=== PATIENT | male | born 1940 | race Caucasian/White ===

== ENCOUNTER 2017-10-05 10:45 | Inpatient (IN) | payer BC, MEDICARE ==
[~2017-10-05] VITALS: Ht 162.6 cm; Wt 73.0 kg
--- NOTE | 2017-10-05 11:00 | NUR ---
[id number], [id number] FROM HOME: FOUND BY CAREGIVER ON CHAIR, ALOC. UNKNOWN LKW TIME. BS IN FIELD 277. TACHYCARDIC =130. RR IS EVEN AND UNLABORED WITH NAD NOTED. SKIN IS WARM AND DRY. PLACED ON THE MONITOR. WILL CONTINUOUSLY MONITOR THE PATIENT. DR MELGOZA AT BS FOR EVAL.
--- NOTE | 2017-10-05 11:02 | NUR ---
NEURO INTACT, FACE SYMMETRICAL, BILATERAL STRONG AND EQUAL FISH CULTURIST.
[2017-10-05 11:25] LABS: CALCIUM, SERUM 9.9 mg/dL (8.5-10.1); CARBON DIOXIDE 27 mmol/L (21-32); CHLORIDE 98 mmol/L (98-107); CREATININE 1.6 mg/dL (0.6-1.3); GLUCOSE 253 mg/dL (74-106); POTASSIUM 3.8 mmol/L (3.5-5.1); SODIUM SERUM 136 mmol/L (136-145); UREA NITROGEN, BLOOD 27 mg/dL (7-18)
[2017-10-05 11:26] LABS: BASOPHILS % (AUTO) 0.2 % (0.0-2.0); EOSINOPHILS % (AUTO) 0.5 % (0.0-6.0); HEMATOCRIT 43 % (39-51); LYMPHOCYTES # (AUTO) 1.4 /CMM (0.8-4.8); LYMPHOCYTES % (AUTO) 9.6 % (20.0-44.0); MEAN CORPUSCULAR HGB CONC 35 g/dl (31.0-36.0); MEAN CORPUSCULAR VOLUME 90 fL (80-96); MONOCYTES # (AUTO) 0.8 /CMM (0.1-1.30); MONOCYTES % (AUTO) 5.4 % (2.0-12.0); NEUTROPHILS # (AUTO) 12.3 /CMM (1.8-8.9); NEUTROPHILS % (AUTO) 84.3 % (43.0-81.0); PLATELET COUNT (AUTO) 162 /CMM (150-450); RDW COEFFICIENT OF VARIATION 12.8 (11.5-15.0); RED BLOOD CELL COUNT(AUTO) 4.79 MIL/uL (4.5-6.0); WHITE BLOOD COUNT (AUTO) 14.6 K/uL (4.3-11.0)
[2017-10-05] MEDS ORDERED: METF-440 PO (11:30)
[2017-10-05] MEDS ORDERED: IV NS 0.9% 1,000 ML BAG IV ONE ×2 (11:30→12:30)
[2017-10-05] MEDS ORDERED: ATOR40TA PO (11:30)
[2017-10-05] MEDS ORDERED: EZET10TA14 PO (11:30)
--- NOTE | 2017-10-05 11:30 | NUR ---
PATIENT CAME BACK FROM CT HEAD VIA RFORT SHAW. PATIENT REMAINS IN STABLE CONDITION AT THIS TIME.
[2017-10-05 11:31] LABS: ALANINE AMINOTRANSFERASE 49 U/L (12-78); ALBUMIN 3.6 g/dL (3.4-5.0); ALKALINE PHOSPHATASE 101 U/L (46-116); ASPARTATE AMINOTRANSFERASE 33 U/L (15-37); BILIRUBIN,DIRECT 0.2 mg/dL (0.0-0.2); TOTAL PROTEIN, SERUM 7.5 g/dL (6.4-8.2)
[2017-10-05 11:33] LABS: TROPONIN I 0.051 ng/mL (0.00-0.056)
[2017-10-05 12:02] LABS: APPEARANCE,URINE Clear (CLEAR); BILIRUBIN,URINE SMALL (NEGATIVE); BLOOD, URINE Trace-intact Ery/uL (NEGATIVE); COLOR,URINE Yellow (YELLOW); KETONES,URINE 80 (NEGATIVE); LEUKOCYTE ESTERASE ,URINE Negative (NEGATIVE); NITRITE, URINE Negative (NEGATIVE); PH,URINE 6.5 (5.0-8.0); PROTEIN,URINE 30 mg/dl (NEGATIVE); UGLUCOSE 250 MG/DL mg/dL (NEGATIVE); UROBILINOGEN,URINE 0.2 EU/dL (0.2)
[2017-10-05] MEDS ORDERED: CEFTRIAXONE 1GM BAG (ER ONLY) 50 ML IV ONE ×2 (12:28→12:30)
[2017-10-05] MEDS ORDERED: ASPIRIN 81 MG TAB.CHEW ONE (12:28)
[2017-10-05] MEDS ORDERED: ASPIRIN 81 MG TAB.CHEW PO ONE (12:30)
[2017-10-05 12:36] LABS: RBC,URINE 0-3 /HPF (0-2); SQUAMOUS EPITHELIAL CELL,UR Rare /HPF (None Seen); WBC,URINE 0-2 /HPF (0-3)
[2017-10-05 12:37] LABS: BACTERIA,URINE Few /HPF (None Seen)
--- NOTE | 2017-10-05 12:46 | NUR ---
CALLED NURSE SUP FOR JACKIE BED
[2017-10-05] MEDS ORDERED: LABETALOL 20 MG/4 ML VIAL IV ONE (13:30)
[2017-10-05] MEDS ORDERED: LABETALOL HCL IV 100MG VIAL ONE (13:30)
--- NOTE | 2017-10-05 14:03 | NUR ---
Report given to JERRY Gardner for [facility] JACKIE 102
--- NOTE | 2017-10-05 15:30 | NUR ---
JACKIE RN INITIAL NOTE PATIENT BROUGHT IN TO THE UNIT FOR ALTERED MENTAL STATUS PATIENT IS AT BEDSIDE PATIENT IS ABLE TO MAKE NEEDS KNOWN RN CONTACTED CHIKA SHEPHERD FOR ORDERS. PATIENT VITALS ARE STABLE AT THIS POINT , PATIENT REQUEST TO REST FULL BODY ASSESSMENT COMPLETED PATIENT APPEARS RESTLESS ON INITIAL ASSESSMENT. PATIENT SATURATING WELL ON ROOM AIR NO SOB NOTED AT THIS TIME, RN WILL CONTINUE TO FOLLOW THE PATIENT THROUGHOUT THE DAY
--- NOTE | 2017-10-05 15:55 | NUR ---
RN NOTE RN CONTACTED LIBRARIAN ASSISTANT ADE IN REGARDS TO PATIENT REQUESTING FURTHER INFORMATION ON TRANSFERING THE PATIENT TO [facility] FOR CONTINUATION OF CARE THROUGH THE PATIENT PRIMARY MD GOGO FERREIRA [phone]. PATIENT NAME IS JOSE JUAN [place] / . RN WILL CONTINUE TO FOLLOW UP
[2017-10-05 16:00] VITALS: BP 95/48
[2017-10-05 17:02] VITALS: BP 95/48
[2017-10-05] MEDS ORDERED: LORA-259 PO (17:09)
[2017-10-05] MEDS ORDERED: SALM50DI IH (17:09)
[2017-10-05] MEDS ORDERED: BUSP10TA35 PO (17:09)
[2017-10-05] MEDS ORDERED: PRED20TA PO (17:09)
[2017-10-05] MEDS ORDERED: ALBU18HF2 INH (17:09)
[2017-10-05] MEDS ORDERED: LISI10TA5 PO (17:09)
[2017-10-05] MEDS ORDERED: METO-357 PO (17:09)
[2017-10-05] MEDS ORDERED: HYDR-3204 PO (17:09)
[2017-10-05] MEDS ORDERED: IV NS 0.9% 1,000 ML BAG IV PRN (18:00)
[2017-10-05] MEDS ORDERED: IV NS 0.9% 1,000 ML IV PRN (18:00)
[2017-10-05] MEDS ORDERED: DEXTROSE 50%-WATER 50 ML DISP.SYRIN IV PRN (18:30)
[2017-10-05] MEDS ORDERED: LORAZEPAM 1 MG TABLET PO PRN (18:30)
[2017-10-05] MEDS ORDERED: ALBUTEROL FS 2.5 MG/0.5 ML VIAL.NEB NEB PRN (19:00)
[2017-10-05] MEDS ORDERED: IPRATROPIUM NEB FS 0.5 MG/2.5 ML AMPUL.NEB NEB PRN (19:00)
--- NOTE | 2017-10-05 19:33 | NUR ---
RN NOTE PATIENT IN BED CALM WITH VITALS STABLE PATIENT ABLE TO MAKE NEEDS KNOWN, NO SOB NOTED AT THIS TIME , PATIENT ON ROOM AIR. PATIENT. PATIENT CARE ENDORSE TO PM RN.
[2017-10-05 20:00] VITALS: BP_SYST 146; BP_DIAS 75; BP_DIAS 76
[2017-10-05] MEDS: HYDROCODONE/APAP 5/325MG 1 EACH TABLET PO PRN ×2 (20:10→22:18)
--- NOTE | 2017-10-05 20:30 | NUR ---
JACKIE RN NOTES PT IS IN BED. A/O X2 WITH NOTED CONFUSION AND AGITATION. C/O LEFT HIP PAIN 01/05. SPOKE WITH JOAO GARMENT SUPERVISOR WITH NEW ORDER FOR NORKO 5/325MG PO PRN Q4 AND ADMIN. IV RIGHT AC AND LEFT HAND CLEAN AND FLUSHING WELL. BED ALARM ENABLED, CALL LIGHT IN REACH. WILL MONITOR.
[2017-10-05] MEDS ORDERED: TEMAZEPAM 7.5 MG CAPSULE PO PRN (21:00)
[2017-10-05] MEDS ORDERED: MAGNESIUM HYDROXIDE 30 ML UDC PO PRN (21:30)
[2017-10-05] MEDS ORDERED: ACETAMINOPHEN 325 MG TABLET PO PRN ×2 (21:30)
[2017-10-05] MEDS ORDERED: ONDANSETRON HCL/PF 4 MG/2 ML VIAL IVP PRN (21:30)
[2017-10-05] MEDS ORDERED: ATORVASTATIN 40 MG TABLET PO SCH (22:00)
[2017-10-05] MEDS: BLOOD SUGAR DIAGNOSTIC 1 EACH STRIP IN SCH (23:05)
[2017-10-05] MEDS: INSULIN REGULAR, HUMAN 100 UNIT/ML 3 ML VIAL SQ PRN (23:06)
[2017-10-06] VITALS: BP_SYST 147; BP_DIAS 75; BP_DIAS 76
[2017-10-06] MEDS: HYDROCODONE/APAP 5/325MG 1 EACH TABLET PO PRN ×3 (03:17→12:56)
[2017-10-06 04:00] VITALS: BP 142/75
[2017-10-06 07:09] LABS: BASOPHILS % (AUTO) 0.6 % (0.0-2.0); EOSINOPHILS % (AUTO) 2.2 % (0.0-6.0); HEMATOCRIT 36 % (39-51); HEMOGLOBIN 12.6 g/dL (13.5-17.5); LYMPHOCYTES # (AUTO) 0.8 /CMM (0.8-4.8); LYMPHOCYTES % (AUTO) 11.3 % (20.0-44.0); MEAN CORPUSCULAR HGB CONC 35 g/dl (31.0-36.0); MEAN CORPUSCULAR VOLUME 90 fL (80-96); MONOCYTES # (AUTO) 0.6 /CMM (0.1-1.30); MONOCYTES % (AUTO) 7.4 % (2.0-12.0); NEUTROPHILS # (AUTO) 5.9 /CMM (1.8-8.9); NEUTROPHILS % (AUTO) 78.5 % (43.0-81.0); PLATELET COUNT (AUTO) 131 /CMM (150-450); RDW COEFFICIENT OF VARIATION 13.6 (11.5-15.0); RED BLOOD CELL COUNT(AUTO) 3.98 MIL/uL (4.5-6.0); WHITE BLOOD COUNT (AUTO) 7.5 K/uL (4.3-11.0)
--- NOTE | 2017-10-06 07:10 | NUR ---
RN INITIAL NOTES: REC'D PT AWAKE ON BED, NOT IN ANY DISTRESS, A/O X 2-3, DENIES PAIN/DISCOMFORT AT THIS TIME. ON ROOM AIR, NO SOB. ON TELEMONITOR, ST W/ HR 109 BPM. HAS 2 IV LINE ACCESS: R AC G20 & L HAND G20, SL, PATENT & INTACT W/ NO S/SX OF INFECTION/INFILTRATION NOTED. R AC G20, PL W/ NS X 75 CC/HR INFUSING WELL. PROVIDED COMFORT & SAFETY MEASURES. BED KEPT LOW & IN LOCKED POS. CALL LIGHT PLACED W/IN REACH. WILL CONTINUE TO MONITOR & ATTEND PT NEEDS.
[2017-10-06 07:35] LABS: CHOLESTEROL 170 mg/dL (<200); HDL CHOLESTEROL 62 mg/dL (40-60); LDL 78 mg/dL (0-99); TRIGLYCERIDES 290 mg/dL (30-150)
[2017-10-06 07:41] LABS: CALCIUM, SERUM 8.3 mg/dL (8.5-10.1); CARBON DIOXIDE 25 mmol/L (21-32); CHLORIDE 107 mmol/L (98-107); CREATININE 1.1 mg/dL (0.6-1.3); GLUCOSE 163 mg/dL (74-106); MAGNESIUM 1.3 mg/dL (1.8-2.4); PHOSPHORUS 3.9 mg/dL (2.5-4.9); POTASSIUM 3.5 mmol/L (3.5-5.1); SODIUM SERUM 141 mmol/L (136-145); UREA NITROGEN, BLOOD 16 mg/dL (7-18)
[2017-10-06] MEDS: BLOOD SUGAR DIAGNOSTIC 1 EACH STRIP IN SCH ×2 (07:50→11:46)
--- NOTE | 2017-10-06 07:51 | NUR ---
WOOL BROKER CLOSING NOTE PT REMAINED STABLE DURING SHIFT. NO ACUTE DISTRESS NOTED. ALL NEEDS ATTENDED TO PROMPTLY. ASSISTED SAFELY TO THE RESTROOM AND BACK TO BED. PAIN MANAGED WITH PAIN MEDS.BED ALARM ENABLED. CALL LIGHT WITHIN REACH. WILL ENDORSE TO NEXT SHIFT FOR CONTINUITY OF CARE.
[2017-10-06 08:00] VITALS: BP 136/90
[2017-10-06] MEDS: INSULIN REGULAR, HUMAN 100 UNIT/ML 3 ML VIAL SQ PRN ×2 (08:02→11:51)
[2017-10-06 08:14] VITALS: BP 136/90
[2017-10-06] MEDS ORDERED: predniSONE 20 MG TABLET PO SCH (09:00)
[2017-10-06] MEDS ORDERED: busPIRone 5 MG TABLET PO SCH (09:00)
[2017-10-06] MEDS ORDERED: SALMETEROL XINAFOATE 1 DISK DISK IH SCH (09:00)
[2017-10-06] MEDS ORDERED: EZETIMIBE 10 MG TABLET PO SCH (09:00)
[2017-10-06] MEDS ORDERED: FLUTICASONE/VILANTEROL 1 EACH BLST.W.DEV IH SCH (09:00)
[2017-10-06] MEDS ORDERED: METOPROLOL SUCCINATE 50 MG TAB.SR.24H PO SCH (09:00)
[2017-10-06] MEDS ORDERED: AMLODIPINE BESYLATE 5 MG TABLET PO SCH (09:00)
[2017-10-06] MEDS ORDERED: Magnesium 1GM/D5W 100ML PREMIX 100 ML IV SCH (11:00)
[2017-10-06] MEDS ORDERED: CEFTRIAXONE 1 G in IV NS 0.9% 50 ML IV SCH (12:00)
[2017-10-06] MEDS ORDERED: CEFTRIAXONE 1 G VIAL IM SCH (12:30)
--- NOTE | 2017-10-06 14:50 | NUR ---
PRODUCT SAFETY EXPERT NOTES: PT WAS SEEN & EXAMINED BY DR. WORTHY W/ DC ORDERS. PT DC'D TO HOME. DC DOCUMENTS EXPLAINED & PROVIDED TO THE PT W/ VERBALIZATION OF UNDERSTANDING. PT IS A/O X 3, DENIES ANY PAIN/DISCOMFORT AT THIS TIME. IV LINE ACCESS REMOVED, PRESSURE DRESSING APPLIED, NO SIGN OF BLEEDING NOTED. NOTIFIED THAT PT REFUSED 2 BAGS OF MAGNESIUM. ALL DC DOCUMENTS SIGNED BY PT. BELONGINGS SENT W/ PT. APPOINTMENT LETTER & RX GIVEN TO THE PT. MADE AWARE OF THE APPT DATE. PT LEFT FACILITY IN STABLE CONDITION VIA WHEELCHAIR ACCOMPANIED BY RN. NO CONCERN IDENTIFIED AT THE TIME OF DC.
[2017-11-24] MEDS ORDERED: TRIA0.252 PO (11:59)
[2017-11-24] MEDS ORDERED: ALBU8.5H8 IH (11:59)
[2017-11-24] MEDS ORDERED: AMLO5TAB7 PO (13:36)
== END 2017-10-06 14:38 | disposition home or self-care (01) | DRG 682 ==
LOC: ER 10:48 → TELE-TD 13:25 → TELE1 10-06 00:42 → MEDSG1 10-06 08:09
PROVIDERS: ADMIT Nurse Practitioner Acute Care; ATTEND Nurse Practitioner Acute Care
DX: N17.9 Acute kidney failure, unspecified (principal); I21.A1 Myocardial infarction type 2; G92 Toxic encephalopathy; I16.9 Hypertensive crisis, unspecified; N39.0 Urinary tract infection, site not specified; E86.0 Dehydration; I12.9 Hypertensive chronic kidney disease with stage 1 through stage 4 chronic kidney disease, or unspecified chronic kidney disease; N18.9 Chronic kidney disease, unspecified; E78.5 Hyperlipidemia, unspecified; J44.9 Chronic obstructive pulmonary disease, unspecified; F41.9 Anxiety disorder, unspecified; D72.829 Elevated white blood cell count, unspecified; T38.3X5A Adverse effect of insulin and oral hypoglycemic [antidiabetic] drugs, initial encounter; Y92.89 Other specified places as the place of occurrence of the external cause; G47.00 Insomnia, unspecified; E11.22 Type 2 diabetes mellitus with diabetic chronic kidney disease; M19.90 Unspecified osteoarthritis, unspecified site
CPT/HCPCS: 36415; 70450-TC; 71045-TC; 80048-TC; 80061-TC; 80076-TC; 81000-TC; 82962-TC; 83605-TC; 83735-TC; 84100-TC; 84443-TC; 84484-TC; 85025-TC; 87040-TC; 87081-TC; 87086-TC; A4216; A4606; J0696; J1815; J3475; J3490; J7030; Z7610

== ENCOUNTER 2017-10-13 13:15 | Outpatient (CLI) | payer MEDICARE ==
[~2017-10-13 13:15] MED LIST: ALBU18HF2 INH; ATOR40TA PO; BUSP10TA35 PO; EZET10TA14 PO; HYDR-3204 PO; LISI10TA5 PO; LORA-259 PO; METF-440 PO; METO-357 PO; PRED20TA PO; SALM50DI IH
[2017-10-13 14:08] VITALS: BP 127/79
[2017-11-24] MEDS ORDERED: ALBU8.5H8 IH (11:59)
[2017-11-24] MEDS ORDERED: TRIA0.252 PO (11:59)
[2017-11-24] MEDS ORDERED: AMLO5TAB7 PO (13:36)
== END 2017-10-13 23:59 | disposition home or self-care (01) ==
LOC: MSC 13:15
PROVIDERS: ATTEND Internal Medicine
DX: I10 Essential (primary) hypertension (principal); J44.9 Chronic obstructive pulmonary disease, unspecified; E78.5 Hyperlipidemia, unspecified; F41.9 Anxiety disorder, unspecified; M19.90 Unspecified osteoarthritis, unspecified site; M16.10 Unilateral primary osteoarthritis, unspecified hip; M54.9 Dorsalgia, unspecified; G89.29 Other chronic pain; F32.9 Major depressive disorder, single episode, unspecified

== ENCOUNTER 2017-10-27 12:57 | Outpatient (CLI) | payer MEDICARE ==
[2017-10-27 13:17] VITALS: BP 137/84
[2017-11-24] MEDS ORDERED: TRIA0.252 PO (11:59)
[2017-11-24] MEDS ORDERED: ALBU8.5H8 IH (11:59)
[2017-11-24] MEDS ORDERED: AMLO5TAB7 PO (13:36)
== END 2017-10-27 23:59 | disposition home or self-care (01) ==
LOC: MSC 12:57
PROVIDERS: ATTEND Internal Medicine
DX: J44.9 Chronic obstructive pulmonary disease, unspecified (principal); R05 Cough; Z79.52 Long term (current) use of systemic steroids; I10 Essential (primary) hypertension; E78.5 Hyperlipidemia, unspecified; F41.9 Anxiety disorder, unspecified; M16.10 Unilateral primary osteoarthritis, unspecified hip; G89.29 Other chronic pain; Z79.891 Long term (current) use of opiate analgesic

== ENCOUNTER 2017-11-05 12:58 | Outpatient (CLI) | payer MEDICARE ==
[2017-11-05 13:01] VITALS: BP 151/76
[2017-11-24] MEDS ORDERED: ALBU8.5H8 IH (11:59)
[2017-11-24] MEDS ORDERED: TRIA0.252 PO (11:59)
[2017-11-24] MEDS ORDERED: AMLO5TAB7 PO (13:36)
== END 2017-11-05 23:59 | disposition home or self-care (01) ==
LOC: MSC 12:58
PROVIDERS: ATTEND Internal Medicine
DX: J44.1 Chronic obstructive pulmonary disease with (acute) exacerbation (principal); I10 Essential (primary) hypertension; E78.5 Hyperlipidemia, unspecified; F41.9 Anxiety disorder, unspecified; M16.10 Unilateral primary osteoarthritis, unspecified hip; G89.29 Other chronic pain; M54.9 Dorsalgia, unspecified

== ENCOUNTER 2017-11-24 13:32 | Outpatient (CLI) | payer MEDICARE ==
[~2017-11-24 13:32] MED LIST changes: +ALBU8.5H8 IH; -METF-440 PO; +METF500T4 PO; +TRIA0.252 PO
[2017-11-24] MEDS ORDERED: AMLO5TAB2 PO (13:36)
[2017-11-24 13:37] VITALS: BP 157/76
== END 2017-11-24 23:59 | disposition home or self-care (01) ==
LOC: MSC 13:32
PROVIDERS: ATTEND Internal Medicine
DX: J44.9 Chronic obstructive pulmonary disease, unspecified (principal); Z79.52 Long term (current) use of systemic steroids; J96.11 Chronic respiratory failure with hypoxia; M16.10 Unilateral primary osteoarthritis, unspecified hip; G89.29 Other chronic pain; F41.8 Other specified anxiety disorders; E78.5 Hyperlipidemia, unspecified; Z79.899 Other long term (current) drug therapy

== ENCOUNTER 2017-12-07 10:41 | Outpatient (CLI) | payer MEDICARE ==
[~2017-12-07 10:41] MED LIST changes: -ALBU18HF2 INH; +AMLO5TAB7 PO; -LISI10TA5 PO; -LORA-259 PO; +METF-440 PO; -METF500T4 PO; -SALM50DI IH
[2017-12-07 13:08] LABS: ALANINE AMINOTRANSFERASE 51 U/L (12-78); ALBUMIN 3.2 g/dL (3.4-5.0); ALKALINE PHOSPHATASE 72 U/L (46-116); ASPARTATE AMINOTRANSFERASE 18 U/L (15-37); BILIRUBIN,TOTAL 0.6 mg/dL (0.2-1.0); CALCIUM, SERUM 8.6 mg/dL (8.5-10.1); CARBON DIOXIDE 21 mmol/L (21-32); CHLORIDE 105 mmol/L (98-107); CREATININE 1.2 mg/dL (0.6-1.3); GLUCOSE 306 mg/dL (74-106); POTASSIUM 4.7 mmol/L (3.5-5.1); SODIUM SERUM 138 mmol/L (136-145); TOTAL PROTEIN, SERUM 6.3 g/dL (6.4-8.2); UREA NITROGEN, BLOOD 24 mg/dL (7-18)
[2017-12-07 13:18] LABS: CHOLESTEROL 170 mg/dL (<200); FREE T4 (FREE THYROXINE) 0.85 ng/dL (0.76-1.46); HDL CHOLESTEROL 70 mg/dL (40-60); LDL 83 mg/dL (0-99); THYROID STIMULATING HORMONE 0.698 uIU/mL (0.358-3.74); TRIGLYCERIDES 98 mg/dL (30-150)
[2017-12-07 13:32] LABS: BASOPHILS % (AUTO) 0.2 % (0.0-2.0); HEMATOCRIT 40 % (39-51); HEMOGLOBIN 13.4 g/dL (13.5-17.5); LYMPHOCYTES # (AUTO) 0.7 /CMM (0.8-4.8); LYMPHOCYTES % (AUTO) 8.9 % (20.0-44.0); MEAN CORPUSCULAR HGB CONC 33 g/dl (31.0-36.0); MEAN CORPUSCULAR VOLUME 93 fL (80-96); MONOCYTES # (AUTO) 0.3 /CMM (0.1-1.30); MONOCYTES % (AUTO) 3.9 % (2.0-12.0); NEUTROPHILS # (AUTO) 6.9 /CMM (1.8-8.9); PLATELET COUNT (AUTO) 133 /CMM (150-450); RDW COEFFICIENT OF VARIATION 12.7 (11.5-15.0); RED BLOOD CELL COUNT(AUTO) 4.29 MIL/uL (4.5-6.0)
== END 2017-12-07 23:59 | disposition home or self-care (01) ==
LOC: LAB 10:41
PROVIDERS: ATTEND Internal Medicine
DX: Z00.01 Encounter for general adult medical examination with abnormal findings (principal); E11.9 Type 2 diabetes mellitus without complications; E78.2 Mixed hyperlipidemia
CPT/HCPCS: 36415; 80053-TC; 80061-TC; 84439-TC; 84443-TC; 85025-TC

== ENCOUNTER 2017-12-22 13:19 | Outpatient (CLI) | payer MEDICARE ==
[2017-12-22 13:38] VITALS: BP 102/77
== END 2017-12-22 23:59 | disposition home or self-care (01) ==
LOC: MSC 13:19
PROVIDERS: ATTEND Internal Medicine
DX: I10 Essential (primary) hypertension (principal); J44.9 Chronic obstructive pulmonary disease, unspecified; Z79.52 Long term (current) use of systemic steroids; E11.65 Type 2 diabetes mellitus with hyperglycemia; Z79.84 Long term (current) use of oral hypoglycemic drugs; J96.11 Chronic respiratory failure with hypoxia; M19.90 Unspecified osteoarthritis, unspecified site; M16.10 Unilateral primary osteoarthritis, unspecified hip; G89.29 Other chronic pain; F41.8 Other specified anxiety disorders; E78.5 Hyperlipidemia, unspecified

== ENCOUNTER 2018-01-26 12:56 | Outpatient (CLI) | payer MEDICARE ==
[~2018-01-26 12:56] MED LIST changes: +AMLO5TAB2 PO; -AMLO5TAB7 PO; -METF-440 PO; +METF500T6 PO
[2018-01-26] MEDS ORDERED: LISI-607 PO (13:04)
[2018-01-26 13:06] VITALS: BP 134/88
== END 2018-01-26 23:59 | disposition home or self-care (01) ==
LOC: MSC 12:56
PROVIDERS: ATTEND Internal Medicine
DX: J44.9 Chronic obstructive pulmonary disease, unspecified (principal); J96.11 Chronic respiratory failure with hypoxia; I10 Essential (primary) hypertension; F41.9 Anxiety disorder, unspecified; M16.10 Unilateral primary osteoarthritis, unspecified hip; G89.29 Other chronic pain; Z79.891 Long term (current) use of opiate analgesic; Z79.52 Long term (current) use of systemic steroids; E78.5 Hyperlipidemia, unspecified; F32.9 Major depressive disorder, single episode, unspecified

== ENCOUNTER 2018-02-23 13:42 | Outpatient (CLI) | payer MEDICARE ==
[~2018-02-23 13:42] MED LIST changes: +LISI-607 PO
[2018-02-23 16:37] LABS: BASOPHILS % (AUTO) 0.1 % (0.0-2.0); EOSINOPHILS % (AUTO) 0.1 % (0.0-6.0); HEMATOCRIT 45 % (39-51); HEMOGLOBIN 14.5 g/dL (13.5-17.5); LYMPHOCYTES # (AUTO) 0.8 /CMM (0.8-4.8); LYMPHOCYTES % (AUTO) 8.5 % (20.0-44.0); MEAN CORPUSCULAR HEMOGLOBIN 30 PG (26.0-33.0); MEAN CORPUSCULAR HGB CONC 33 g/dl (31.0-36.0); MEAN CORPUSCULAR VOLUME 93 fL (80-96); MONOCYTES # (AUTO) 0.2 /CMM (0.1-1.30); MONOCYTES % (AUTO) 2.5 % (2.0-12.0); NEUTROPHILS # (AUTO) 8.4 /CMM (1.8-8.9); NEUTROPHILS % (AUTO) 88.8 % (43.0-81.0); PLATELET COUNT (AUTO) 218 /CMM (150-450); RDW COEFFICIENT OF VARIATION 14.3 (11.5-15.0); RED BLOOD CELL COUNT(AUTO) 4.78 MIL/uL (4.5-6.0); WHITE BLOOD COUNT (AUTO) 9.5 K/uL (4.3-11.0)
[2018-02-23 16:45] LABS: APPEARANCE,URINE CLEAR (CLEAR); BILIRUBIN,URINE NEGATIVE (NEGATIVE); BLOOD, URINE NEGATIVE Ery/uL (NEGATIVE); COLOR,URINE YELLOW (YELLOW); KETONES,URINE NEGATIVE (NEGATIVE); LEUKOCYTE ESTERASE ,URINE NEGATIVE (NEGATIVE); NITRITE, URINE NEGATIVE (NEGATIVE); PROTEIN,URINE NEGATIVE (NEGATIVE); UGLUCOSE 1+ mg/dL (NEGATIVE); UROBILINOGEN,URINE 0.2 EU/dL (0.2)
[2018-02-23 16:48] LABS: BACTERIA,URINE Few /HPF (None Seen); RBC,URINE 0-2 /HPF (0-2); SQUAMOUS EPITHELIAL CELL,UR Rare /HPF (None Seen); WBC,URINE 0-2 /HPF (0-3)
[2018-02-23 16:51] LABS: INR 0.91 (0.87-1.13)
[2018-02-23 16:54] LABS: ALANINE AMINOTRANSFERASE 28 U/L (12-78); ALBUMIN 3.9 g/dL (3.4-5.0); ALKALINE PHOSPHATASE 74 U/L (46-116); ASPARTATE AMINOTRANSFERASE 35 U/L (15-37); BILIRUBIN,TOTAL 0.9 mg/dL (0.2-1.0); CARBON DIOXIDE 26 mmol/L (21-32); CHLORIDE 103 mmol/L (98-107); CREATININE 1.4 mg/dL (0.6-1.3); GLUCOSE 248 mg/dL (74-106); POTASSIUM 5.4 mmol/L (3.5-5.1); SODIUM SERUM 140 mmol/L (136-145); TOTAL PROTEIN, SERUM 7.2 g/dL (6.4-8.2); UREA NITROGEN, BLOOD 33 mg/dL (7-18)
== END 2018-02-23 23:59 | disposition home or self-care (01) ==
LOC: LAB 13:42
PROVIDERS: ATTEND Internal Medicine
DX: Z01.818 Encounter for other preprocedural examination (principal); I70.0 Atherosclerosis of aorta; M16.12 Unilateral primary osteoarthritis, left hip; I10 Essential (primary) hypertension; E11.9 Type 2 diabetes mellitus without complications; J44.9 Chronic obstructive pulmonary disease, unspecified; Z87.891 Personal history of nicotine dependence
CPT/HCPCS: 36415; 71046; 80053-TC; 81000-TC; 85025-TC; 85610-TC; 85730-TC

== ENCOUNTER 2018-03-16 12:41 | Outpatient (CLI) | payer MEDICARE ==
[~2018-03-16 12:41] MED LIST changes: -AMLO5TAB2 PO; +AMLO5TAB7 PO; +METF-440 PO; -METF500T6 PO
[2018-03-16 13:27] VITALS: BP 124/59
== END 2018-03-16 23:59 | disposition home or self-care (01) ==
LOC: MSC 12:41
PROVIDERS: ATTEND Internal Medicine
DX: Z47.81 Encounter for orthopedic aftercare following surgical amputation (principal); Z96.642 Presence of left artificial hip joint; J44.9 Chronic obstructive pulmonary disease, unspecified; G89.29 Other chronic pain; E78.5 Hyperlipidemia, unspecified; M47.9 Spondylosis, unspecified; F41.9 Anxiety disorder, unspecified; J96.11 Chronic respiratory failure with hypoxia; I10 Essential (primary) hypertension; E11.65 Type 2 diabetes mellitus with hyperglycemia; Z79.84 Long term (current) use of oral hypoglycemic drugs; Z79.51 Long term (current) use of inhaled steroids; Z79.52 Long term (current) use of systemic steroids

== ENCOUNTER 2018-04-15 13:28 | Outpatient (CLI) | payer MEDICARE ==
[2018-04-15 14:26] VITALS: BP 132/65
== END 2018-04-15 23:59 | disposition home or self-care (01) ==
LOC: MSC 13:28
PROVIDERS: ATTEND Internal Medicine
DX: Z09 Encounter for follow-up examination after completed treatment for conditions other than malignant neoplasm (principal); Z96.649 Presence of unspecified artificial hip joint; I10 Essential (primary) hypertension; J44.9 Chronic obstructive pulmonary disease, unspecified; Z79.52 Long term (current) use of systemic steroids; E11.65 Type 2 diabetes mellitus with hyperglycemia; J96.11 Chronic respiratory failure with hypoxia; F41.9 Anxiety disorder, unspecified; M19.90 Unspecified osteoarthritis, unspecified site; G89.29 Other chronic pain; F32.9 Major depressive disorder, single episode, unspecified; E78.5 Hyperlipidemia, unspecified

== ENCOUNTER 2018-07-20 13:04 | Outpatient (CLI) | payer MEDICARE ==
[~2018-07-20 13:04] MED LIST changes: -AMLO5TAB7 PO; +AMLO5TAB9 PO
== END 2018-07-20 23:59 | disposition home or self-care (01) ==
LOC: MSC 13:04
PROVIDERS: ATTEND Nurse Practitioner Acute Care
DX: I10 Essential (primary) hypertension (principal); E78.5 Hyperlipidemia, unspecified; J44.9 Chronic obstructive pulmonary disease, unspecified; F41.8 Other specified anxiety disorders; M19.90 Unspecified osteoarthritis, unspecified site; G89.4 Chronic pain syndrome; E11.8 Type 2 diabetes mellitus with unspecified complications; Z79.84 Long term (current) use of oral hypoglycemic drugs; H40.9 Unspecified glaucoma; Z96.649 Presence of unspecified artificial hip joint

== ENCOUNTER 2018-09-14 13:50 | Outpatient (CLI) | payer MEDICARE ==
[2018-09-14 14:58] LABS: CALCIUM, SERUM 9.1 mg/dL (8.5-10.1); CARBON DIOXIDE 23 mmol/L (21-32); CHLORIDE 104 mmol/L (98-107); CREATININE 1.6 mg/dL (0.6-1.3); GLUCOSE 333 mg/dL (74-106); POTASSIUM 4.6 mmol/L (3.5-5.1); SODIUM SERUM 139 mmol/L (136-145); UREA NITROGEN, BLOOD 25 mg/dL (7-18)
== END 2018-09-14 23:59 | disposition home or self-care (01) ==
LOC: MSC 13:50
PROVIDERS: ATTEND Nurse Practitioner Acute Care
DX: E11.65 Type 2 diabetes mellitus with hyperglycemia (principal); I10 Essential (primary) hypertension; E78.5 Hyperlipidemia, unspecified; J44.9 Chronic obstructive pulmonary disease, unspecified; F41.9 Anxiety disorder, unspecified; M19.90 Unspecified osteoarthritis, unspecified site; G89.4 Chronic pain syndrome; M54.9 Dorsalgia, unspecified; F32.9 Major depressive disorder, single episode, unspecified; H40.9 Unspecified glaucoma; Z96.649 Presence of unspecified artificial hip joint
CPT/HCPCS: 36415; 80048; 83036; G0463

== ENCOUNTER → 2018-10-19 | Outpatient (CLI) | payer MEDICARE | END | disposition home or self-care (01) | LOC: MSC 15:30 | PROVIDERS: ATTEND Anesthesiology | DX: M51.36 Other intervertebral disc degeneration, lumbar region (principal); M54.16 Radiculopathy, lumbar region; M62.830 Muscle spasm of back; G89.4 Chronic pain syndrome; M25.561 Pain in right knee; M25.562 Pain in left knee; M25.9 Joint disorder, unspecified; Z79.891 Long term (current) use of opiate analgesic ==

== ENCOUNTER → 2018-11-09 | Outpatient (CLI) | payer MEDICARE | END | disposition home or self-care (01) | LOC: MSC 14:30 | PROVIDERS: ATTEND Anesthesiology | DX: M54.16 Radiculopathy, lumbar region (principal); M51.36 Other intervertebral disc degeneration, lumbar region; M62.830 Muscle spasm of back; G89.4 Chronic pain syndrome; M25.561 Pain in right knee; M25.562 Pain in left knee; M25.9 Joint disorder, unspecified; Z79.891 Long term (current) use of opiate analgesic ==

== ENCOUNTER 2018-12-09 13:07 | Outpatient (CLI) | payer MEDICARE ==
[2018-12-09 13:55] VITALS: BP 123/63
[2018-12-09 14:04] LABS: BASOPHILS # (AUTO) 0.1 /CMM (0.0-0.2); BASOPHILS % (AUTO) 0.8 % (0.0-2.0); EOSINOPHILS % (AUTO) 0.3 % (0.0-6.0); HEMATOCRIT 42 % (39-51); HEMOGLOBIN 14.9 g/dL (13.5-17.5); LYMPHOCYTES # (AUTO) 0.7 /CMM (0.8-4.8); LYMPHOCYTES % (AUTO) 8.4 % (20.0-44.0); MEAN CORPUSCULAR HGB CONC 35 g/dl (31.0-36.0); MEAN CORPUSCULAR VOLUME 90 fL (80-96); MONOCYTES # (AUTO) 0.2 /CMM (0.1-1.30); MONOCYTES % (AUTO) 2.7 % (2.0-12.0); NEUTROPHILS # (AUTO) 7.6 /CMM (1.8-8.9); NEUTROPHILS % (AUTO) 87.8 % (43.0-81.0); PLATELET COUNT (AUTO) 168 /CMM (150-450); RED BLOOD CELL COUNT(AUTO) 4.72 MIL/uL (4.5-6.0); WHITE BLOOD COUNT (AUTO) 8.6 K/uL (4.3-11.0)
[2018-12-09 14:11] LABS: CALCIUM, SERUM 8.8 mg/dL (8.5-10.1); CARBON DIOXIDE 25 mmol/L (21-32); CHLORIDE 102 mmol/L (98-107); CREATININE 1.6 mg/dL (0.6-1.3); GLUCOSE 323 mg/dL (74-106); POTASSIUM 4.7 mmol/L (3.5-5.1); SODIUM SERUM 137 mmol/L (136-145); UREA NITROGEN, BLOOD 27 mg/dL (7-18)
== END 2018-12-09 23:59 | disposition home or self-care (01) ==
LOC: MSC 13:07
PROVIDERS: ATTEND Nurse Practitioner Acute Care
DX: E11.65 Type 2 diabetes mellitus with hyperglycemia (principal); Z79.84 Long term (current) use of oral hypoglycemic drugs; I10 Essential (primary) hypertension; E78.5 Hyperlipidemia, unspecified; J42 Unspecified chronic bronchitis; Z87.891 Personal history of nicotine dependence; Z79.52 Long term (current) use of systemic steroids; G89.4 Chronic pain syndrome; M54.9 Dorsalgia, unspecified; M19.90 Unspecified osteoarthritis, unspecified site; F32.9 Major depressive disorder, single episode, unspecified; R60.9 Edema, unspecified
CPT/HCPCS: 36415; 80048; 82962 ×2; 83036; 85025; G0463

== ENCOUNTER 2018-12-21 12:45 | Outpatient (CLI) | payer MEDICARE | END 2018-12-21 23:59 | disposition home or self-care (01) | LOC: MSC 12:45 | PROVIDERS: ATTEND Anesthesiology | DX: M51.36 Other intervertebral disc degeneration, lumbar region (principal); M54.16 Radiculopathy, lumbar region; G89.4 Chronic pain syndrome; M62.830 Muscle spasm of back; M25.561 Pain in right knee; M25.562 Pain in left knee; M25.9 Joint disorder, unspecified; Z79.891 Long term (current) use of opiate analgesic ==

== ENCOUNTER 2019-01-18 08:30 | Outpatient (CLI) | payer MEDICARE | END 2019-01-18 23:59 | disposition home or self-care (01) | LOC: MSC 08:30 | PROVIDERS: ATTEND Anesthesiology | DX: M51.36 Other intervertebral disc degeneration, lumbar region (principal); M54.16 Radiculopathy, lumbar region; M62.830 Muscle spasm of back; G89.4 Chronic pain syndrome; M25.9 Joint disorder, unspecified; M25.561 Pain in right knee; M25.562 Pain in left knee; Z79.891 Long term (current) use of opiate analgesic; Z79.899 Other long term (current) drug therapy | CPT/HCPCS: 82962-TC ==

== ENCOUNTER 2019-02-15 11:00 | Outpatient (CLI) | payer MEDICARE ==
[~2019-02-15 11:00] MED LIST changes: -EZET10TA14 PO; +EZET10TA16 PO
== END 2019-02-15 23:59 | disposition home or self-care (01) ==
LOC: MSC 11:00
PROVIDERS: ATTEND Anesthesiology
DX: M51.16 Intervertebral disc disorders with radiculopathy, lumbar region (principal); G89.4 Chronic pain syndrome; M62.830 Muscle spasm of back; M25.561 Pain in right knee; M25.562 Pain in left knee; Z79.899 Other long term (current) drug therapy
CPT/HCPCS: 82962; G0463

== ENCOUNTER 2019-03-15 10:30 | Outpatient (CLI) | payer MEDICARE | END 2019-03-15 23:59 | disposition home or self-care (01) | LOC: MSC 10:30 | PROVIDERS: ATTEND Anesthesiology | DX: M51.36 Other intervertebral disc degeneration, lumbar region (principal); M54.16 Radiculopathy, lumbar region; M62.830 Muscle spasm of back; G89.4 Chronic pain syndrome; M25.561 Pain in right knee; M25.562 Pain in left knee; M25.9 Joint disorder, unspecified; Z79.899 Other long term (current) drug therapy ==

== ENCOUNTER 2019-03-22 10:15 | Outpatient (CLI) | payer MEDICARE | END 2019-03-22 23:59 | disposition home or self-care (01) | LOC: MSC 10:15 | PROVIDERS: ATTEND Internal Medicine | DX: E11.65 Type 2 diabetes mellitus with hyperglycemia (principal); I10 Essential (primary) hypertension; E78.5 Hyperlipidemia, unspecified; J44.9 Chronic obstructive pulmonary disease, unspecified; G89.4 Chronic pain syndrome; M54.9 Dorsalgia, unspecified; M19.90 Unspecified osteoarthritis, unspecified site; F32.9 Major depressive disorder, single episode, unspecified; Z96.641 Presence of right artificial hip joint; Z79.4 Long term (current) use of insulin ==

== ENCOUNTER 2019-03-29 09:51 | Outpatient (CLI) | payer MEDICARE ==
[2019-04-29] MEDS ORDERED: PRED50TA PO (11:17)
[2019-04-29] MEDS ORDERED: AMLO10TA7 PO (11:17)
[2019-04-29] MEDS ORDERED: TIOT18CA3 INH (11:17)
[2019-04-29] MEDS ORDERED: ALBU8.5H8 INH (11:17)
[2019-04-29] MEDS ORDERED: INSU100V7 SQ (11:17)
== END 2019-03-29 23:59 | disposition home or self-care (01) ==
LOC: MSC 09:51
PROVIDERS: ATTEND Anesthesiology
DX: M51.36 Other intervertebral disc degeneration, lumbar region (principal); M54.16 Radiculopathy, lumbar region; M62.830 Muscle spasm of back; G89.4 Chronic pain syndrome; M25.9 Joint disorder, unspecified; M25.561 Pain in right knee; M25.562 Pain in left knee; Z79.899 Other long term (current) drug therapy

== ENCOUNTER 2019-04-01 09:32 | Outpatient (CLI) | payer MEDICARE ==
[2019-04-01 09:48] LABS: BASOPHILS # (AUTO) 0.1 /CMM (0.0-0.2); BASOPHILS % (AUTO) 1.2 % (0.0-2.0); EOSINOPHILS % (AUTO) 10.2 % (0.0-6.0); HEMATOCRIT 43 % (39-51); HEMOGLOBIN 15.2 g/dL (13.5-17.5); LYMPHOCYTES # (AUTO) 1.6 /CMM (0.8-4.8); LYMPHOCYTES % (AUTO) 23.6 % (20.0-44.0); MEAN CORPUSCULAR HGB CONC 35 g/dl (31.0-36.0); MEAN CORPUSCULAR VOLUME 91 fL (80-96); MONOCYTES # (AUTO) 0.7 /CMM (0.1-1.30); MONOCYTES % (AUTO) 9.5 % (2.0-12.0); NEUTROPHILS # (AUTO) 3.9 /CMM (1.8-8.9); NEUTROPHILS % (AUTO) 55.5 % (43.0-81.0); PLATELET COUNT (AUTO) 170 /CMM (150-450); RED BLOOD CELL COUNT(AUTO) 4.74 MIL/uL (4.5-6.0)
[2019-04-01 10:01] LABS: ALBUMIN 3.7 g/dL (3.4-5.0); BILIRUBIN,DIRECT 0.2 mg/dL (0.0-0.2); BILIRUBIN,TOTAL 0.7 mg/dL (0.2-1.0); CALCIUM, SERUM 8.8 mg/dL (8.5-10.1); CREATININE 1.3 mg/dL (0.6-1.3); TOTAL PROTEIN, SERUM 6.5 g/dL (6.4-8.2)
[2019-04-01 10:15] LABS: PROSTATE SPECIFIC ANTIGEN SCR 1.26 ng/mL (0.00-4.00); THYROID STIMULATING HORMONE 2.531 uIU/mL (0.358-3.74)
== END 2019-04-01 23:59 | disposition home or self-care (01) ==
LOC: LAB 09:32
PROVIDERS: ATTEND Internal Medicine
DX: E11.9 Type 2 diabetes mellitus without complications (principal); I10 Essential (primary) hypertension; J44.9 Chronic obstructive pulmonary disease, unspecified; Z87.891 Personal history of nicotine dependence
CPT/HCPCS: 36415; 80048-TC; 80061-TC; 80076-TC; 84153-TC; 84439-TC; 84443-TC; 85025-TC

== ENCOUNTER 2019-04-26 14:16 | Inpatient (IN) | payer MEDICARE ==
[~2019-04-26] VITALS: Ht 162.6 cm; Wt 65.8 kg
--- NOTE | 2019-04-26 14:20 | NUR ---
send by dr diaz. pt c/o sob, chest pressure and back pain 03/08. PATIENT A/OX4, BREATHING SLIGHTLY SHALLOW, CHANGED INTO GOWN,A TTACHED TO THE LEADERSHIP DEVELOPMENT INSTRUCTOR. KEPT COMFORTABLE IN BED.
--- NOTE | 2019-04-26 14:25 | NUR ---
DR. ALCOCER AT BEDSIDE FOR EVAL.
[2019-04-26] MEDS ORDERED: IPRATROPIUM NEB FS 0.5 MG/2.5 ML AMPUL.NEB NEB ONE (14:30)
[2019-04-26] MEDS ORDERED: ALBUTEROL FS 2.5 MG/3 ML VIAL.NEB CONTNEB ONE (14:30)
[2019-04-26] MEDS ORDERED: methylPREDNISolone SOD SUCC 125 MG/2ML VIAL IV ONE (14:30)
[2019-04-26 14:38] LABS: BASOPHILS % (AUTO) 0.3 % (0.0-2.0); EOSINOPHILS % (AUTO) 0.1 % (0.0-6.0); HEMATOCRIT 42 % (39-51); HEMOGLOBIN 14.4 g/dL (13.5-17.5); LYMPHOCYTES # (AUTO) 0.7 /CMM (0.8-4.8); LYMPHOCYTES % (AUTO) 6.6 % (20.0-44.0); MEAN CORPUSCULAR HGB CONC 34 g/dl (31.0-36.0); MEAN CORPUSCULAR VOLUME 91 fL (80-96); MONOCYTES # (AUTO) 0.3 /CMM (0.1-1.30); MONOCYTES % (AUTO) 2.9 % (2.0-12.0); NEUTROPHILS % (AUTO) 90.1 % (43.0-81.0); PLATELET COUNT (AUTO) 275 /CMM (150-450); WHITE BLOOD COUNT (AUTO) 11.1 K/uL (4.3-11.0)
[2019-04-26] MEDS ORDERED: methylPREDNISolone SOD SUCC 125 MG/2ML VIAL ONE (14:39)
[2019-04-26] MEDS ORDERED: MORPHINE SULFATE INJ 4 MG/ML DISP.SYRIN ONE (14:39)
[2019-04-26] MEDS ORDERED: ONDANSETRON HCL/PF 4 MG/2 ML VIAL ONE (14:39)
[2019-04-26 14:52] LABS: CALCIUM, SERUM 9.4 mg/dL (8.5-10.1); CARBON DIOXIDE 26 mmol/L (21-32); CHLORIDE 104 mmol/L (98-107); CREATININE 1.4 mg/dL (0.6-1.3); GLUCOSE 208 mg/dL (74-106); POTASSIUM 4.3 mmol/L (3.5-5.1); SODIUM SERUM 139 mmol/L (136-145); UREA NITROGEN, BLOOD 23 mg/dL (7-18)
[2019-04-26] MEDS ORDERED: IPRATROPIUM NEB FS 0.5 MG/2.5 ML AMPUL.NEB ONE (14:54)
[2019-04-26] MEDS ORDERED: ALBUTEROL FS 2.5 MG/0.5 ML VIAL.NEB ONE (14:54)
[2019-04-26 15:00] LABS: ALANINE AMINOTRANSFERASE 41 U/L (12-78); ALBUMIN 3.7 g/dL (3.4-5.0); ALKALINE PHOSPHATASE 77 U/L (46-116); ASPARTATE AMINOTRANSFERASE 19 U/L (15-37); B-TYPE NATRIURETIC PEPTIDE 85 PG/ML (0-125); BILIRUBIN,DIRECT 0.1 mg/dL (0.0-0.2); BILIRUBIN,TOTAL 0.5 mg/dL (0.2-1.0); TOTAL PROTEIN, SERUM 7.5 g/dL (6.4-8.2)
[2019-04-26] MEDS ORDERED: ONDANSETRON HCL/PF 4 MG/2 ML VIAL IVP ONE (15:00)
[2019-04-26] MEDS ORDERED: MORPHINE SULFATE INJ 2 MG/ML DISP.SYRIN IV ONE (15:00)
--- NOTE | 2019-04-26 15:03 | NUR ---
CALLED FOR TELE BED
--- NOTE | 2019-04-26 15:08 | NUR ---
ROOM RZZFXCEO=[id number]
--- NOTE | 2019-04-26 15:28 | NUR ---
REPORT GIVEN TO SUNIL EDWARDS
[2019-04-26] MEDS ORDERED: ACETAMINOPHEN 325 MG TABLET PO PRN (15:30)
[2019-04-26] MEDS ORDERED: ONDANSETRON HCL/PF 4 MG/2 ML VIAL IVP PRN (15:30)
[2019-04-26] MEDS ORDERED: MAG HYDROX/AL HYDROX/SIMETH 30 ML UDC PO PRN (15:30)
[2019-04-26] MEDS ORDERED: ALBUTEROL FS 2.5 MG/0.5 ML VIAL.NEB NEB PRN (15:30)
[2019-04-26] MEDS ORDERED: DEXTROSE 50%-WATER 50 ML DISP.SYRIN IV PRN (15:30)
[2019-04-26] MEDS ORDERED: Z GUARD REMEDY 2 OZ OINT TP PRN (15:30)
[2019-04-26] MEDS ORDERED: ALBUTEROL FS 2.5 MG/3 ML VIAL.NEB ONE (15:31)
--- NOTE | 2019-04-26 15:52 | NUR ---
AIR POLLUTION INSPECTORSUBSEA ENGINEER NOTE: RECEIVED ENDORSEMENT STEVEN BRISCOE RN FROM ED. PATIENT ARRRIVED IN UNIT VIA GURNEY AND TRANSFERRED TO BED VIA AMBULATION WITH CANE. ALERT AND ORIENTED X2. AWARE AND INVOLVED IN HIS CARE. ABLE TO MAKE NEEDS KNOWN. TOLERATING ROOM AIR AT 92%. HEART MONITOR ATTACHED TO PATIENT, SINUS TACHYCARDIA REPORTED FROM ER AND STILL NOTED IN PATIENT. NO ACUTE DISTRESS NOTED OR REPORTED. PATIENT WITH IV SITE ON RIGHT AC WITH G18 SALINE LOCK. SITE CLEAN, SECURE AND DRY. PATIENT REPORTS NO BM SINCE YESTERDAY, LAST VOIDING WAS IN THE MORNING PRIOR TO ADMISSION. SKIN ASSESSMENT DONE, NO PRESSURE SORES IDENTIFIED. ORIENTED PATIENT TO UNIT, ROOM AND SAFETY PRECAUTIONS. BED IN LOW, LOCKED AND SEMI-ACKERMAN'S POSITION, CALL LIGHT IN REACH. LOWER BACK PAIN RADIATING TO RIGHT LOWER EXTREMITY STILL REPORTED, EXPLAINED AND OFFERED PAIN MANAGEMENT OPTIONS. WILL CONTINUE TO MONITOR PATIENT.
--- NOTE | 2019-04-26 15:54 | NUR ---
PATIENT TRANSFERRED TO ROOM 118-1 VIA ACLS PROTOCOL. NO DISTRESS NOTED.
[2019-04-26 16:00] VITALS: BP 132/69
[2019-04-26] MEDS ORDERED: TRIAZOLAM 0.125 MG TABLET PO PRN (16:00)
[2019-04-26] MEDS: CEFTRIAXONE 1 G in IV D5W 50 ML IV SCH (16:55)
[2019-04-26] MEDS ORDERED: busPIRone HCL 10 MG TABLET PO SCH (17:00)
[2019-04-26] MEDS: methylPREDNISolone SOD SUCC 125 MG/2ML VIAL IV SCH ×2 (17:04→20:18)
[2019-04-26] MEDS: BLOOD SUGAR DIAGNOSTIC 1 EACH STRIP VI SCH ×2 (17:05→21:35)
[2019-04-26] MEDS: busPIRone 5 MG TABLET PO SCH (17:05)
[2019-04-26] MEDS: METFORMIN 500 MG TABLET PO SCH (17:05)
[2019-04-26] MEDS: INSULIN REGULAR, HUMAN 100 UNIT/ML 3 ML VIAL SQ PRN (17:13)
[2019-04-26] MEDS: HYDROCODONE/APAP 5/325MG 1 EACH TABLET PO PRN ×2 (17:30→22:06)
--- NOTE | 2019-04-26 18:51 | NUR ---
MARKETING PRODUCTION MANAGER CLOSING NOTE: PATIENT IN BED, APPEARS COMFORTABLE AND RELAXED. STILL REPORTING CONSTANT PAIN IN THE LOWER BACK RADIATING TO THE RIGHT LOWER EXTREMITY. NO SOB, NO ACUTE DISTRESS NOTED. AWAKE, ALERT AND ORIENTED X4. IV SITE CLEAN, INTACT AND DRY. TOLERATING ROOM AIR @ 92%. CALL LIGHT STILL IN REACH, BED IN LOW, LOCKED AND SEMI-ACKERMAN'S POSITION. WILL ENDORSE TO ONCOMING SHIFT FOR CONTINUITY OF CARE.
--- NOTE | 2019-04-26 19:40 | NUR ---
OFFICE RN NOTES, PATIENT IN BED, AWAKE, A/O X4 ABLE TO VERBALIZED NEEDS AND CONCERNS, BREATHING EVEN AND UNLABORED NO SOB/ACUTE DISTRESS NOTED AT THIS TIME IV SITE CLEAN, ON 2LPM VIA NC AT THIS TIME, WITH 02 SAT 96% AT THIS TIME, CALL LIGHT STILL IN REACH, BED LOCKED AND LOW POSITION, AND SEMI-ACKERMAN'S POSITION, TO EXPAND LUNGS, WILL CONTINUE TO MONITOR CLOSELY. Addendum: 04/27/19 at 0657 by BILL MILLARD RN CALL LIGHT WITHIN REACH.
[2019-04-26] MEDS: MAGNESIUM HYDROXIDE 30 ML UDC PO PRN (19:56)
[2019-04-26] MEDS: MORPHINE SULFATE INJ 2 MG/ML DISP.SYRIN IV PRN (19:56)
[2019-04-26 20:00] VITALS: BP 146/82
[2019-04-26 21:00] VITALS: BP 146/82
[2019-04-26] MEDS: ATORVASTATIN 40 MG TABLET PO SCH (21:13)
[2019-04-26] MEDS: *INSULIN REGULAR(HUMULIN R)HUM 100 UNIT/ML VIAL SQ PRN (21:41)
[2019-04-26] MEDS: LORAZEPAM 1 MG TABLET PO PRN (22:02)
[2019-04-26] MEDS ORDERED: TEMAZEPAM 7.5 MG CAPSULE PO PRN (22:30)
[2019-04-26] MEDS: GUAIFENESIN 300 MG/15 ML UDC PO PRN (22:58)
[2019-04-27] VITALS (8 sets, daily range): BP systolic 117–159; BP diastolic 69–94
[2019-04-27] MEDS: MORPHINE SULFATE INJ 2 MG/ML DISP.SYRIN IV PRN ×2 (02:49→08:14)
[2019-04-27] MEDS: GUAIFENESIN 300 MG/15 ML UDC PO PRN (05:51)
[2019-04-27] MEDS: HYDROCODONE/APAP 5/325MG 1 EACH TABLET PO PRN ×3 (05:52→21:51)
[2019-04-27 06:33] LABS: HEMATOCRIT 39 % (39-51); HEMOGLOBIN 13.6 g/dL (13.5-17.5); LYMPHOCYTES % (AUTO) 5.3 % (20.0-44.0); MEAN CORPUSCULAR HGB CONC 35 g/dl (31.0-36.0); MEAN CORPUSCULAR VOLUME 90 fL (80-96); NEUTROPHILS % (AUTO) 93.1 % (43.0-81.0); PLATELET COUNT (AUTO) 264 /CMM (150-450); RED BLOOD CELL COUNT(AUTO) 4.35 MIL/uL (4.5-6.0)
[2019-04-27 06:34] LABS: LYMPHOCYTES # (AUTO) 0.6 /CMM (0.8-4.8); MONOCYTES # (AUTO) 0.2 /CMM (0.1-1.30); MONOCYTES % (AUTO) 1.6 % (2.0-12.0); NEUTROPHILS # (AUTO) 10.2 /CMM (1.8-8.9)
--- NOTE | 2019-04-27 06:55 | NUR ---
COMMERCIAL RETOUCHER NOTES, PATIENT IN BED, ASLEEP AT THIS TIME, BREATHING EVEN AND UNLABORED NO SOB/ACUTE DISTRESS NOTED AT THIS TIME, ON 2LPM VIA NC AT THIS TIME, SATURATING WELL, CALL LIGHT W/I REACH, BED LOCKED AND LOW POSITION, NO SIGNIFICANT CHANGE IN CONDITION DURING THE NIGHT, WILL ENDORSE CONTINUITY OF CARE TO ONCOMING NURSE.
[2019-04-27 07:14] LABS: CARBON DIOXIDE 24 mmol/L (21-32); CHLORIDE 103 mmol/L (98-107); CREATININE 1.4 mg/dL (0.6-1.3); GLUCOSE 258 mg/dL (74-106); MAGNESIUM 2.5 mg/dL (1.8-2.4); PHOSPHORUS 2.2 mg/dL (2.5-4.9); POTASSIUM 4.2 mmol/L (3.5-5.1); SODIUM SERUM 139 mmol/L (136-145); UREA NITROGEN, BLOOD 25 mg/dL (7-18)
--- NOTE | 2019-04-27 07:43 | NUR ---
RN AM SHIFT NOTE PATIENT AWAKE AND ALERT. COMPLAINING OF MILD SOB RELATED TO COPD. COMPLAINT HE DID NOT SLEEP AT NIGHT AWAITING HALCION ORDER FROM MD. IV PATENT AND INTACT, BED LOW TO FLOOR, CALL LIGHT WITHIN REACH , ALL NEEDS MET AT THIS TIME.
[2019-04-27] MEDS: BLOOD SUGAR DIAGNOSTIC 1 EACH STRIP VI SCH ×4 (08:07→21:52)
[2019-04-27] MEDS: methylPREDNISolone SOD SUCC 125 MG/2ML VIAL IV SCH ×4 (08:08→21:51)
[2019-04-27] MEDS: METFORMIN 500 MG TABLET PO SCH ×2 (08:08→16:25)
[2019-04-27] MEDS: EZETIMIBE 10 MG TABLET PO SCH (08:08)
[2019-04-27] MEDS: METOPROLOL SUCCINATE 50 MG TAB.SR.24H PO SCH (08:09)
[2019-04-27] MEDS: busPIRone 5 MG TABLET PO SCH ×3 (08:09→16:25)
[2019-04-27] MEDS: *INSULIN REGULAR(HUMULIN R)HUM 100 UNIT/ML VIAL SQ PRN ×3 (08:11→21:53)
[2019-04-27] MEDS: LORAZEPAM 1 MG TABLET PO PRN (09:33)
[2019-04-27] MEDS: MAGNESIUM HYDROXIDE 30 ML UDC PO PRN (12:09)
--- NOTE | 2019-04-27 12:26 | NUR ---
SPIKEMAKING SUPERVISOR NOTE RECEIVED PATIENT FROM SHANTI EDWARDS. PATIENT IN BED, AWAKE, A/O X4 ABLE TO VERBALIZED NEEDS AND CONCERNS, BREATHING EVEN AND UNLABORED NO SOB/ACUTE DISTRESS NOTED AT THIS TIME IV SITE PATENT AND INTACT. CALL LIGHT STILL IN REACH, BED LOCKED AND LOW POSITION, AND SEMI-ACKERMAN'S POSITION, WILL CONTINUE TO MONITOR CLOSELY.
[2019-04-27] MEDS ORDERED: K PHOS NEUTRAL 250 MG TABLET PO ONE (12:30)
[2019-04-27] MEDS ORDERED: TEMAZEPAM 15 MG CAPSULE PO PRN (13:00)
[2019-04-27] MEDS: INSULIN REGULAR, HUMAN 100 UNIT/ML 3 ML VIAL SQ PRN (13:31)
[2019-04-27] MEDS: CEFTRIAXONE 1 G in IV D5W 50 ML IV SCH (16:25)
[2019-04-27] MEDS: ALBUTEROL FS 2.5 MG/0.5 ML VIAL.NEB NEB SCH ×3 (16:35→23:30)
[2019-04-27] MEDS: LORAZEPAM 1 MG TABLET PO SCH ×2 (18:00→23:44)
--- NOTE | 2019-04-27 18:00 | NUR ---
PT REFUSED ATIVAN AND SAID i WILL GET IT LATER DURING THE NIGHT.
--- NOTE | 2019-04-27 19:25 | NUR ---
TELE/RN NOTES PATIENT IN BED, RESTING COMFORTABLY AT THIS TIME, NO S/S OF ACUTE DISTRESS NOTES, RESPIRATION EVEN AND UNLABORED. NO SOB NOTED. PATIENT ALERT AND ORIENTED X4, DENIES ANY PAIN OR DISCOMFORT AT THIS TIME. PATIENT ON TELE MONITORING WITH SINUS TACHY, IV SITE WITH NO S/S OF INFECTION/INFILTRATION, FLUSHED WITH NS. SAFETY MAINTAINED, BED AT THE LOWEST LOCKED POSITION. CALL LIGHT WITHIN REACH. WILL CONTINUE TO MONITOR PER PLAN OF CARE.
--- NOTE | 2019-04-27 20:50 | NUR ---
DIABETES TRAINER CLOSING NOTE: PATIENT IN BED, APPEARS COMFORTABLE AND RELAXED. NO SOB, NO ACUTE DISTRESS NOTED. AWAKE, ALERT AND ORIENTED X4. IV SITE CLEAN, INTACT AND DRY. TOLERATING ROOM AIR @ 98%. CALL LIGHT STILL IN REACH, BED IN LOW, LOCKED AND SEMI-ACKERMAN'S POSITION. ENDORSED TO PM SHIFT FOR CONTINUITY OF CARE.
[2019-04-27] MEDS: ATORVASTATIN 40 MG TABLET PO SCH (21:52)
--- NOTE | 2019-04-27 23:44 | NUR ---
PATIENT IN NO ACUTE DISTRESS, BREATHING EVEN AND UNLABORED, NO SOB NOTED, SLEEPING COMFORTABLY AT THIS TIME, EASILY AROUSABLE. DENIES ANY PAIN AT THIS TIME, REPORT GIVEN TO EVANS
--- NOTE | 2019-04-28 00:10 | NUR ---
SHEARER OPERATOR NOTE: RECEIVED REPORT FROM ENRIQUETA, PATIENT SLEEPING IN BED, NO ACUTE DISTRESS NOTED. IV TO RAC IN PLACE. BED LOCKED AND IN LOWEST POSITION, CALL LIGHT IN REACH, WILL CONTINUE TO MONITOR.
[2019-04-28 00:20] VITALS: BP 124/69
[2019-04-28] MEDS: ALBUTEROL FS 2.5 MG/0.5 ML VIAL.NEB NEB SCH ×6 (03:30→23:00)
--- NOTE | 2019-04-28 04:10 | NUR ---
RT PT REQUESTED TO LET HIM SLEEP. NO SOB OR DISTRESS NOTED.
[2019-04-28 04:30] VITALS: BP 134/73
--- NOTE | 2019-04-28 06:45 | NUR ---
MACHINE ERECTOR NOTE: PATIENT RESTING IN BED, NO ACUTE DISTRESS NOTED. IV TO RAC IN PLACE. BED LOCKED AND IN LOWEST POSITION, CALL LIGHT IN REACH, WILL ENDORSE TO DAY NURSE TO CONTINUE WITH PLAN OF CARE.
[2019-04-28 06:51] LABS: ALANINE AMINOTRANSFERASE 33 U/L (12-78); ALBUMIN 3.1 g/dL (3.4-5.0); ALKALINE PHOSPHATASE 65 U/L (46-116); ASPARTATE AMINOTRANSFERASE 20 U/L (15-37); BILIRUBIN,TOTAL 0.4 mg/dL (0.2-1.0); CALCIUM, SERUM 8.4 mg/dL (8.5-10.1); CARBON DIOXIDE 22 mmol/L (21-32); CHLORIDE 106 mmol/L (98-107); CREATININE 1.6 mg/dL (0.6-1.3); GLUCOSE 265 mg/dL (74-106); MAGNESIUM 2.4 mg/dL (1.8-2.4); PHOSPHORUS 3.2 mg/dL (2.5-4.9); POTASSIUM 4.1 mmol/L (3.5-5.1); SODIUM SERUM 141 mmol/L (136-145); TOTAL PROTEIN, SERUM 6.7 g/dL (6.4-8.2); UREA NITROGEN, BLOOD 36 mg/dL (7-18)
[2019-04-28 06:52] LABS: CREATINE KINASE, TOTAL 211 U/L (39-308)
[2019-04-28] MEDS: LORAZEPAM 1 MG TABLET PO SCH ×3 (06:55→18:12)
[2019-04-28 07:04] LABS: BASOPHILS % (AUTO) 0.1 % (0.0-2.0); HEMATOCRIT 37 % (39-51); HEMOGLOBIN 12.7 g/dL (13.5-17.5); LYMPHOCYTES # (AUTO) 0.6 /CMM (0.8-4.8); LYMPHOCYTES % (AUTO) 3.9 % (20.0-44.0); MEAN CORPUSCULAR HGB CONC 34 g/dl (31.0-36.0); MEAN CORPUSCULAR VOLUME 91 fL (80-96); MONOCYTES # (AUTO) 0.5 /CMM (0.1-1.30); MONOCYTES % (AUTO) 2.8 % (2.0-12.0); NEUTROPHILS # (AUTO) 14.8 /CMM (1.8-8.9); NEUTROPHILS % (AUTO) 93.2 % (43.0-81.0); PLATELET COUNT (AUTO) 273 /CMM (150-450); WHITE BLOOD COUNT (AUTO) 15.8 K/uL (4.3-11.0)
[2019-04-28 08:00] VITALS: BP 139/74
[2019-04-28] MEDS: IPRATROPIUM NEB FS 0.5 MG/2.5 ML AMPUL.NEB NEB PRN (08:00)
--- NOTE | 2019-04-28 08:00 | NUR ---
RN NOTES RECEIVED PATIENT IN THE BED RESTING, BS-263 MG/DL. PATIENT ON O2-2L NC, WAS COMPLAINING OF PAIN GENERALIZED. PATIENT AMBULATORY SELF CARE. ADMINISTERED SCHEDULED MEDICATION, V/S STABLE. NO ACUTE RESPIRATORY DISTRESS. CALL LIGHT WITHIN TO REACH. CONTINUED MONITORING.
[2019-04-28] MEDS: EZETIMIBE 10 MG TABLET PO SCH (09:49)
[2019-04-28] MEDS: methylPREDNISolone SOD SUCC 125 MG/2ML VIAL IV SCH ×4 (09:49→22:10)
[2019-04-28] MEDS: HYDROCODONE/APAP 5/325MG 1 EACH TABLET PO PRN ×2 (09:50→17:20)
[2019-04-28] MEDS: METOPROLOL SUCCINATE 50 MG TAB.SR.24H PO SCH (09:50)
--- NOTE | 2019-04-28 09:50 | NUR ---
rn notes administered narco 5/325 mg po prn for lower back pain 12/06 per patient request, v/s taken bp 139/74, p120, r-20.
[2019-04-28] MEDS: busPIRone 5 MG TABLET PO SCH ×3 (09:51→17:19)
[2019-04-28] MEDS: BLOOD SUGAR DIAGNOSTIC 1 EACH STRIP VI SCH ×4 (09:51→22:10)
[2019-04-28] MEDS: INSULIN REGULAR, HUMAN 100 UNIT/ML 3 ML VIAL SQ PRN ×3 (09:57→17:22)
[2019-04-28 12:00] VITALS: BP 141/71
--- NOTE | 2019-04-28 13:00 | NUR ---
RN NOTES BS-246 MG/DL COVERAGE GIVEN. MEDICATION WERE ADMINISTERED FOR PAIN EFFECTIVE. ALSO ADMINISTERED SCHEDULED MEDICATION. FRIEND NEXT TO THE BED.CONTINUED MONITORING.
[2019-04-28] MEDS: AMLODIPINE BESYLATE 5 MG TABLET PO SCH (14:01)
[2019-04-28 16:00] VITALS: BP 158/77
[2019-04-28] MEDS: CEFTRIAXONE 1 G in IV D5W 50 ML IV SCH (18:11)
--- NOTE | 2019-04-28 18:30 | NUR ---
RN NOTES BS-291 MG/DL COVERAGE GIVEN ADMINISTERED SCHEDULED MEDICATION, INFUSING ROCEPHIN 100 ML/HR ON LEFT FA INTACT. COLLECTED UA SPECIMEN. PATIENT TOLERATED DINNER WELL. ON O2 2LNC. CALL LIGHT WITHIN TO REACH. MEDICATION WERE ADMINISTERED FOR PAIN EFFECTIVE. ENDORSED ONCOMING NURSE FOLLOW PLAN OF CARE.
[2019-04-28 20:00] VITALS: BP 114/75
--- NOTE | 2019-04-28 20:00 | NUR ---
HUB INVENTORY SPECIALIST INITIAL NOTES, PATIENT IN BED, ASLEEP AT THIS TIME, BREATHING EVEN AND UNLABORED NO SOB/ACUTE DISTRESS NOTED AT THIS TIME, ON 2LPM VIA NC AT THIS TIME, SATURATING WELL, ALL NEEDS MET ,CALL LIGHT W/I REACH, BED LOCKED AND LOW POSITION, NO SIGNIFICANT CHANGE IN CONDITION DURING THE NIGHT, WILL HOPE.
[2019-04-28 20:27] LABS: APPEARANCE,URINE CLEAR (CLEAR); BILIRUBIN,URINE NEGATIVE (NEGATIVE); BLOOD, URINE NEGATIVE Ery/uL (NEGATIVE); COLOR,URINE YELLOW (YELLOW); KETONES,URINE NEGATIVE (NEGATIVE); LEUKOCYTE ESTERASE ,URINE NEGATIVE (NEGATIVE); NITRITE, URINE NEGATIVE (NEGATIVE); PROTEIN,URINE NEGATIVE (NEGATIVE); UGLUCOSE >=1000 mg/dL (NEGATIVE); UROBILINOGEN,URINE 0.2 EU/dL (0.2)
[2019-04-28 20:57] LABS: BACTERIA,URINE None seen /HPF (None Seen); SQUAMOUS EPITHELIAL CELL,UR Rare /HPF (None Seen); WBC,URINE 0-2 /HPF (0-3)
[2019-04-28 21:02] LABS: CREATININE, URINE 110.3 MG/DL (30.0-125.0); URINE TOTAL PROTEIN 29.7 mg/dL (0-11.9)
[2019-04-28] MEDS: ATORVASTATIN 40 MG TABLET PO SCH (22:10)
[2019-04-28] MEDS: *INSULIN REGULAR(HUMULIN R)HUM 100 UNIT/ML VIAL SQ PRN (22:21)
[2019-04-28 22:26] LABS: EOSINOPHIL,URINE None Seen
[2019-04-29] VITALS: BP 116/75
[2019-04-29] MEDS: LORAZEPAM 1 MG TABLET PO SCH ×3 (01:05→12:46)
[2019-04-29] MEDS: HYDROCODONE/APAP 5/325MG 1 EACH TABLET PO PRN ×2 (02:15→08:27)
[2019-04-29] MEDS: ALBUTEROL FS 2.5 MG/0.5 ML VIAL.NEB NEB SCH ×3 (02:50→11:53)
[2019-04-29] MEDS: IPRATROPIUM NEB FS 0.5 MG/2.5 ML AMPUL.NEB NEB PRN (02:50)
[2019-04-29 04:16] VITALS: BP 115/75
--- NOTE | 2019-04-29 06:19 | NUR ---
STRATEGY EXECUTION CONSULTANT CLOSING NOTES, PATIENT IN BED, ASLEEP AT THIS TIME, BREATHING EVEN AND UNLABORED NO SOB/ACUTE DISTRESS NOTED AT THIS TIME, ON 2LPM VIA NC AT THIS TIME, SATURATING WELL, ALL NEEDS MET ,CALL LIGHT W/I REACH, BED LOCKED AND LOW POSITION, NO SIGNIFICANT CHANGE IN CONDITION DURING THE NIGHT, WILL HOPE.
[2019-04-29 06:20] LABS: HEMATOCRIT 39 % (39-51); HEMOGLOBIN 13.1 g/dL (13.5-17.5); LYMPHOCYTES # (AUTO) 0.6 /CMM (0.8-4.8); LYMPHOCYTES % (AUTO) 3.3 % (20.0-44.0); MEAN CORPUSCULAR HGB CONC 34 g/dl (31.0-36.0); MEAN CORPUSCULAR VOLUME 90 fL (80-96); MONOCYTES # (AUTO) 0.4 /CMM (0.1-1.30); MONOCYTES % (AUTO) 2.5 % (2.0-12.0); NEUTROPHILS # (AUTO) 15.6 /CMM (1.8-8.9); NEUTROPHILS % (AUTO) 94.2 % (43.0-81.0); PLATELET COUNT (AUTO) 275 /CMM (150-450); RED BLOOD CELL COUNT(AUTO) 4.28 MIL/uL (4.5-6.0); WHITE BLOOD COUNT (AUTO) 16.6 K/uL (4.3-11.0)
[2019-04-29 06:48] LABS: ALANINE AMINOTRANSFERASE 39 U/L (12-78); ALBUMIN 3.2 g/dL (3.4-5.0); ALKALINE PHOSPHATASE 71 U/L (46-116); ASPARTATE AMINOTRANSFERASE 17 U/L (15-37); BILIRUBIN,TOTAL 0.4 mg/dL (0.2-1.0); CALCIUM, SERUM 8.5 mg/dL (8.5-10.1); CARBON DIOXIDE 21 mmol/L (21-32); CHLORIDE 108 mmol/L (98-107); CREATININE 1.4 mg/dL (0.6-1.3); GLUCOSE 289 mg/dL (74-106); MAGNESIUM 2.5 mg/dL (1.8-2.4); PHOSPHORUS 2.7 mg/dL (2.5-4.9); POTASSIUM 3.7 mmol/L (3.5-5.1); SODIUM SERUM 143 mmol/L (136-145); TOTAL PROTEIN, SERUM 6.7 g/dL (6.4-8.2); UREA NITROGEN, BLOOD 38 mg/dL (7-18)
--- NOTE | 2019-04-29 07:15 | NUR ---
RN OPENING NOTES RECEIVED PATIENT AWAKE AND ALERT, RESTING IN BED COMFORTABLY. HE IS AOX4, VERBAL, AND AMBULATORY. HE IS ON 2L OF NC, TOLERATING WELL, SHOWS NO S/SX OF RESP DISTRESS OR SOB. SINUS MONITOR SHOWING SINUS TACHY. LEFT HAND 22 G IV SITE IS PATENT AND INTACT. SAFETY MEASURES HAVE BEEN IMPLEMENTED, CALL LIGHT IS WITHIN REACH, BED IS IN LOWEST AND LOCKED POSITION, SIDE RAILS UP X2, WILL CONTINUE TO MONITOR FOR ANY CHANGES.
[2019-04-29 08:00] VITALS: BP 150/97
[2019-04-29] MEDS: BLOOD SUGAR DIAGNOSTIC 1 EACH STRIP VI SCH ×2 (08:02→12:28)
[2019-04-29] MEDS: INSULIN REGULAR, HUMAN 100 UNIT/ML 3 ML VIAL SQ PRN ×2 (08:05→12:47)
[2019-04-29] MEDS: AMLODIPINE BESYLATE 5 MG TABLET PO SCH (08:26)
[2019-04-29] MEDS: methylPREDNISolone SOD SUCC 125 MG/2ML VIAL IV SCH ×2 (08:26→12:46)
[2019-04-29] MEDS: EZETIMIBE 10 MG TABLET PO SCH (08:26)
[2019-04-29] MEDS: busPIRone 5 MG TABLET PO SCH ×2 (08:27→12:46)
[2019-04-29 10:00] VITALS: BP 107/65
[2019-04-29] MEDS ORDERED: ALBU8.5H8 INH (11:17)
[2019-04-29] MEDS ORDERED: AMLO10TA7 PO (11:17)
[2019-04-29] MEDS ORDERED: TIOT18CA3 INH (11:17)
[2019-04-29] MEDS ORDERED: PRED50TA PO (11:17)
[2019-04-29] MEDS ORDERED: INSU100V7 SQ (11:17)
--- NOTE | 2019-04-29 11:18 | NUR ---
pt oxygen saturation at rest on RA is 89%. case management notified Addendum: 04/29/19 at 1553 by GASTON DELONG RN oxygen saturation at rest was 88%
[2019-04-29 12:00] VITALS: BP 107/65
[2019-04-29 12:25] LABS: PTH, INTACT 63 pg/mL (15-65)
--- NOTE | 2019-04-29 14:40 | NUR ---
PATIENT HAS BEEN DISCHARGED FROM THE UNIT. LEFT WITH DAUGHTER VIA WHEEL CHAIR WITH PRIVATE CAR. EXIT CARE WAS UTILIZED DURING DC. WENT OVER NEW PRESCRIPTION WITH PT AND DAUGHTER. IV SITE WAS REMOVED, BELONGINGS LIST WAS CHECKED OFF. PATIENT LEFT IN STABLE CONDITION.
--- NOTE | 2019-04-29 14:42 | NUR ---
PATIENT REFUSED DISCHARGE WOUND PICTURES
[2019-05-02 11:07] LABS: *SPE A/G RATIO 1.1 (0.7-1.7); *SPE ALBUMIN 2.9 g/dL (2.9-4.4); *SPE ALPHA-1-GLOBULIN 0.3 g/dL (0.0-0.4); *SPE GLOBULIN, TOTAL 2.7 g/dL (2.2-3.9); *SPE M-SPIKE Not Observed g/dL (Not Observed); *SPEGAMMA GLOBULIN 0.5 g/dL (0.4-1.8)
== END 2019-04-29 14:35 | disposition home health service (06) | DRG 189 ==
LOC: ER 14:21 → TELE1 15:34
PROVIDERS: ADMIT Internal Medicine; ATTEND Internal Medicine
DX: J96.01 Acute respiratory failure with hypoxia (principal); N17.0 Acute kidney failure with tubular necrosis; J44.1 Chronic obstructive pulmonary disease with (acute) exacerbation; J44.0 Chronic obstructive pulmonary disease with (acute) lower respiratory infection; Z79.52 Long term (current) use of systemic steroids; F41.9 Anxiety disorder, unspecified; E78.5 Hyperlipidemia, unspecified; J20.9 Acute bronchitis, unspecified; M47.816 Spondylosis without myelopathy or radiculopathy, lumbar region; G89.4 Chronic pain syndrome; F32.9 Major depressive disorder, single episode, unspecified; I12.9 Hypertensive chronic kidney disease with stage 1 through stage 4 chronic kidney disease, or unspecified chronic kidney disease; E11.22 Type 2 diabetes mellitus with diabetic chronic kidney disease; N18.9 Chronic kidney disease, unspecified
CPT/HCPCS: 36415; 70220-TC; 71045-TC; 76770-TC; 80048-TC; 80053-TC; 80076-TC; 81000-TC; 82550-TC; 82570-TC; 82962-TC; 83735-TC; 83880; 83970; 84100-TC; 84155; 84155-TC; 84165; 84300-TC; 84484-TC; 85025-TC; 87081-TC; 93307-TC; 94799-TC; 97116-TC; 97530-TC; G0378; J0696; J1815; J2270; J2405; J2930; J7030; J7060

== ENCOUNTER 2019-05-02 12:00 | Outpatient (CLI) | payer MEDICARE ==
[~2019-05-02 12:00] MED LIST changes: +ALBU8.5H8 INH; +AMLO10TA7 PO; -AMLO5TAB9 PO; +INSU100V7 SQ; -LISI-607 PO; -METF-440 PO; -METO-357 PO; -PRED20TA PO; +PRED50TA PO; +TIOT18CA3 INH
[2019-05-03 10:16] VITALS: BP 131/76
== END 2019-05-02 23:59 | disposition home or self-care (01) ==
LOC: MSC 12:00
PROVIDERS: ATTEND Internal Medicine
DX: J44.9 Chronic obstructive pulmonary disease, unspecified (principal); Z99.81 Dependence on supplemental oxygen; J96.11 Chronic respiratory failure with hypoxia; I12.9 Hypertensive chronic kidney disease with stage 1 through stage 4 chronic kidney disease, or unspecified chronic kidney disease; E11.22 Type 2 diabetes mellitus with diabetic chronic kidney disease; N18.9 Chronic kidney disease, unspecified; Z79.4 Long term (current) use of insulin; F41.8 Other specified anxiety disorders; G89.29 Other chronic pain; M54.5 Low back pain; Z79.51 Long term (current) use of inhaled steroids; Z79.899 Other long term (current) drug therapy

== ENCOUNTER → 2019-05-31 | Outpatient (CLI) | payer MEDICARE | END | disposition home or self-care (01) | LOC: MSC 10:05 | PROVIDERS: ATTEND Anesthesiology | DX: M51.36 Other intervertebral disc degeneration, lumbar region (principal); M54.16 Radiculopathy, lumbar region; M62.830 Muscle spasm of back; J44.9 Chronic obstructive pulmonary disease, unspecified; G89.4 Chronic pain syndrome; M25.561 Pain in right knee; M25.562 Pain in left knee; M25.9 Joint disorder, unspecified; Z96.642 Presence of left artificial hip joint; Z98.890 Other specified postprocedural states; Z79.891 Long term (current) use of opiate analgesic ==

== ENCOUNTER 2022-01-30 13:33 | Emergency (ER) | payer MEDICARE ==
[~2022-01-30] VITALS: Ht 162.6 cm; Wt 72.6 kg
[~2022-01-30 13:33] MED LIST changes: +AMLO-213 PO; -AMLO10TA7 PO; -HYDR-3204 PO; +HYDR-4275 PO
[2022-01-30 13:50] VITALS: BP 163/89
--- NOTE | 2022-01-30 13:50 | NUR ---
[facility] [phone] NELSON JAMES [phone]
[2022-01-30] MEDS ORDERED: methylPREDNISolone SOD SUCC 125 MG/2ML VIAL IV ONE (14:00)
[2022-01-30] MEDS ORDERED: ALBUTEROL FS 2.5 MG/3 ML VIAL.NEB NEB ONE (14:00)
[2022-01-30] MEDS ORDERED: IPRATROPIUM NEB FS 0.5 MG/2.5 ML AMPUL.NEB NEB ONE (14:00)
[2022-01-30 14:43] LABS: BASOPHILS % (AUTO) 0.2 % (0.0-2.0); EOSINOPHILS % (AUTO) 0.4 % (0.0-6.0); HEMATOCRIT 44 % (39-51); HEMOGLOBIN 14.8 g/dL (13.5-17.5); LYMPHOCYTES # (AUTO) 0.6 K/uL (0.8-4.8); LYMPHOCYTES % (AUTO) 4.7 % (20.0-44.0); MEAN CORPUSCULAR HGB CONC 33 g/dl (31.0-36.0); MEAN CORPUSCULAR VOLUME 93 fL (80-96); MONOCYTES # (AUTO) 0.4 K/uL (0.1-1.30); MONOCYTES % (AUTO) 2.7 % (2.0-12.0); NEUTROPHILS # (AUTO) 11.9 K/uL (1.8-8.9); PLATELET COUNT (AUTO) 150 K/uL (150-450); RED BLOOD CELL COUNT(AUTO) 4.76 MIL/uL (4.5-6.0)
[2022-01-30] MEDS ORDERED: ALBUTEROL FS 2.5 MG/3 ML VIAL.NEB ONE (14:57)
[2022-01-30] MEDS ORDERED: IPRATROPIUM NEB FS 0.5 MG/2.5 ML AMPUL.NEB ONE (14:57)
--- NOTE | 2022-01-30 15:05 | NUR ---
PT ACCEPTED TO [facility] UND[address] DOLOR[address] LE ROOM [address] [place] [id number] PLEASE CALL [phone] FOR REPORT.
[2022-01-30 15:11] LABS: CALCIUM, SERUM 8.7 mg/dL (8.5-10.1); CARBON DIOXIDE 29 mmol/L (21-32); CHLORIDE 104 mmol/L (98-107); CREATININE 1.4 mg/dL (0.6-1.3); GLUCOSE 230 mg/dL (74-106); POTASSIUM 4.6 mmol/L (3.5-5.1); SODIUM SERUM 139 mmol/L (136-145); UREA NITROGEN, BLOOD 30 mg/dL (7-18)
--- NOTE | 2022-01-30 15:11 | NUR ---
[facility] CALLED FOR NICK ARAGON ETA 30 MINS.
[2022-01-30] MEDS ORDERED: BISACODYL (5 MG) 5 MG TABLET.DR ONE (15:15)
[2022-01-30] MEDS ORDERED: methylPREDNISolone SOD SUCC 125 MG/2ML VIAL ONE (15:22)
[2022-01-30] MEDS ORDERED: BISACODYL (5 MG) 5 MG TABLET.DR PO ONE (15:30)
--- NOTE | 2022-01-30 15:42 | NUR ---
report given to yony esparza [facility], awaitingtransport.
== END 2022-01-30 16:29 | disposition short-term general hospital (02) ==
LOC: ER 13:37
DX: R07.1 Chest pain on breathing (principal); J44.1 Chronic obstructive pulmonary disease with (acute) exacerbation; J96.91 Respiratory failure, unspecified with hypoxia; I11.0 Hypertensive heart disease with heart failure; I50.9 Heart failure, unspecified; Z79.4 Long term (current) use of insulin; Z79.899 Other long term (current) drug therapy; E11.65 Type 2 diabetes mellitus with hyperglycemia; Z20.822 Contact with and (suspected) exposure to COVID-19; R91.8 Other nonspecific abnormal finding of lung field; R10.9 Unspecified abdominal pain
CPT/HCPCS: 99291; 96374; 87426; 93005; 71045; 85025; 80048; 36415; 84484; 83880; 94644; J2930; C9803

== ENCOUNTER 2022-05-09 10:42 | Emergency (ER) | payer MEDICARE ==
[~2022-05-09] VITALS: Ht 162.6 cm; Wt 75.3 kg
--- NOTE | 2022-05-09 10:48 | NUR ---
TO ER BED 5. BIB RA 39 FROM [facility]ARE [facility], "MORE ALTERED THAN NORMAL", FEVER AND AGITATED. PT IS AFEBRILE UPON ARRIVAL, 97.8. PT ATTACHED TO MONITOR, VITALS ARE WITHIN NORMAL LIMITS, NO RESP DISTRESS NTOED. DR DUBON AT BEDSIDE, AWAITING MD ORDERS.
--- NOTE | 2022-05-09 11:12 | NUR ---
CALLED DR. LE [phone] OFFICE PER [place] OFFICE WILL CALL TRANSFER CENTER.
[2022-05-09] MEDS ORDERED: GABA-532 PO (11:16)
[2022-05-09] MEDS ORDERED: SPIR25TA6 PO (11:16)
[2022-05-09] MEDS ORDERED: CHLO25TA2 PO (11:16)
[2022-05-09] MEDS ORDERED: NALT50TA PO (11:16)
[2022-05-09] MEDS ORDERED: LAMO200T10 PO (11:16)
[2022-05-09] MEDS ORDERED: QUET300T2 PO (11:16)
[2022-05-09] MEDS ORDERED: BENA40TA8 PO (11:16)
--- NOTE | 2022-05-09 11:20 | NUR ---
BLOOD DRAWN AND SENT TO LAB
[2022-05-09] MEDS ORDERED: GABA600T12 PO (11:26)
[2022-05-09] MEDS ORDERED: DILT30TA2 PO (11:26)
[2022-05-09] MEDS ORDERED: DUTA0.5C37 PO (11:26)
[2022-05-09] MEDS ORDERED: ATOR40TA PO (11:26)
[2022-05-09] MEDS ORDERED: BUDE10.2 INH (11:26)
[2022-05-09] MEDS ORDERED: AMLO-212 PO (11:26)
[2022-05-09] MEDS ORDERED: INSU100V7 (11:26)
[2022-05-09] MEDS ORDERED: MIRT-91 PO (11:26)
[2022-05-09] MEDS ORDERED: OMEP40CA21 PO (11:26)
[2022-05-09] MEDS ORDERED: FURO20TA4 PO (11:26)
[2022-05-09 11:34] LABS: BASOPHILS % (AUTO) 0.4 % (0.0-2.0); EOSINOPHILS % (AUTO) 0.2 % (0.0-6.0); HEMATOCRIT 41 % (39-51); HEMOGLOBIN 13.8 g/dL (13.5-17.5); LYMPHOCYTES # (AUTO) 0.5 K/uL (0.8-4.8); LYMPHOCYTES % (AUTO) 4.9 % (20.0-44.0); MEAN CORPUSCULAR HGB CONC 34 g/dl (31.0-36.0); MEAN CORPUSCULAR VOLUME 89 fL (80-96); MONOCYTES # (AUTO) 0.4 K/uL (0.1-1.30); MONOCYTES % (AUTO) 4.5 % (2.0-12.0); NEUTROPHILS # (AUTO) 8.4 K/uL (1.8-8.9); PLATELET COUNT (AUTO) 143 K/uL (150-450); RED BLOOD CELL COUNT(AUTO) 4.56 MIL/uL (4.5-6.0); WHITE BLOOD COUNT (AUTO) 9.4 K/uL (4.3-11.0)
--- NOTE | 2022-05-09 11:35 | NUR ---
urine sample sent to lab
--- NOTE | 2022-05-09 12:04 | NUR ---
ANUEL FROM [facility] [phone]
[2022-05-09 12:05] LABS: ALANINE AMINOTRANSFERASE 67 U/L (12-78); ALBUMIN 3.5 g/dL (3.4-5.0); ALCOHOL, BLOOD < 3 mg/dL (0-0); ALKALINE PHOSPHATASE 65 U/L (46-116); ASPARTATE AMINOTRANSFERASE 31 U/L (15-37); BILIRUBIN,DIRECT 0.2 mg/dL (0.0-0.2); BILIRUBIN,TOTAL 0.5 mg/dL (0.2-1.0); CALCIUM, SERUM 9.1 mg/dL (8.5-10.1); CARBON DIOXIDE 28 mmol/L (21-32); CHLORIDE 106 mmol/L (98-107); CREATININE 1.3 mg/dL (0.6-1.3); GLUCOSE 186 mg/dL (74-106); POTASSIUM 3.7 mmol/L (3.5-5.1); SODIUM SERUM 144 mmol/L (136-145); UREA NITROGEN, BLOOD 20 mg/dL (7-18)
--- NOTE | 2022-05-09 12:07 | NUR ---
WILL CALL US WITH BED ASSIGNMENT WHEN AVAILABLE.
[2022-05-09 12:09] LABS: BILIRUBIN,URINE NEGATIVE (NEGATIVE); COLOR,URINE YELLOW (YELLOW); LEUKOCYTE ESTERASE ,URINE NEGATIVE (NEGATIVE); NITRITE, URINE NEGATIVE (NEGATIVE); PROTEIN,URINE NEGATIVE (NEGATIVE); UGLUCOSE TRACE mg/dL (NEGATIVE); UROBILINOGEN,URINE 0.2 EU/dL (0.2)
[2022-05-09 12:35] LABS: SERUM AMMONIA < 10 umol/L (11-32)
[2022-05-09 13:33] LABS: BACTERIA,URINE None seen /HPF (None Seen); RBC,URINE NONE SEEN /HPF (0-2); WBC,URINE 0-2 /HPF (0-3)
[2022-05-09 13:34] LABS: SQUAMOUS EPITHELIAL CELL,UR Rare /HPF (None Seen)
[2022-05-09 14:02] VITALS: BP 157/96
--- NOTE | 2022-05-09 14:03 | NUR ---
[facility] [phone]: ACCEPTED TO [facility] UND[address] LE, ROOM [address], NUMBER TO GIVE REPORT [phone]. [facility] WILL SET UP TRANSPORT.
--- NOTE | 2022-05-09 14:08 | NUR ---
TRANSPORT WILL BILLING AND INSURANCE COORDINATOR PATIENT IN 15 MINUTES, [facility] INFORMED
--- NOTE | 2022-05-09 14:30 | NUR ---
REPORT GIVEN TO MARYCHUY EDWARDS [phone] [facility] ROOM [address] [facility]
--- NOTE | 2022-05-09 15:15 | NUR ---
PATIENT TAKEN BY [facility] STAFF FOR TRANSFER TO [facility] IN A STABLE CONDITION
== END 2022-05-09 15:15 | disposition short-term general hospital (02) ==
LOC: ER 10:44
DX: R41.82 Altered mental status, unspecified (principal); I10 Essential (primary) hypertension; J44.9 Chronic obstructive pulmonary disease, unspecified; E11.9 Type 2 diabetes mellitus without complications; Z91.010 Allergy to peanuts; Z88.8 Allergy status to other drugs, medicaments and biological substances; Z79.899 Other long term (current) drug therapy
CPT/HCPCS: 36415; 70450-TC; 71045-TC; 80048-TC; 80076-TC; 81001; 82140-TC; 83605-TC; 84484-TC; 85025-TC; 87040-TC; G0480